=== PATIENT | female | born 1955 ===

== ENCOUNTER 2018-06-15 08:39 | Outpatient (CLI) | payer OTHER | END 2018-06-15 08:42 | disposition home or self-care (01) | LOC: SONOGRAMA 08:39 | DX: E04.2 Nontoxic multinodular goiter (principal) ==

== ENCOUNTER 2023-02-14 09:55 | Outpatient (CLI) | payer OTHER | END 2023-02-14 09:59 | disposition home or self-care (01) | LOC: SONOGRAMA 09:55 | PROVIDERS: ATTEND Pathology Anatomic Pathology & Clinical Pathology | DX: D34 Benign neoplasm of thyroid gland (principal); E04.9 Nontoxic goiter, unspecified ==